=== PATIENT | female | born 1980 | race Caucasian/White ===

== ENCOUNTER 2023-04-25 21:43 | Emergency (ER) | payer MEDICARE, SELFPAY ==
--- NOTE | ~2023-04-25 | CT_ITS ---
EXAMINATION: CT abdomen pelvis w con INDICATION: Lower abdominal pain TECHNIQUE: Computed tomographic images of the abdomen and pelvis were obtained after the administrati on of 100 cc of Omnipaque 350 intravenous contrast. The dose-length product (DLP) was 1200.83 mGy-cm. Automated exposure control and iterative reconstruction technique were employed. COMPARISON: 04/29/2015 FINDINGS: The lung bases are clear. The heart size is normal. Changes of cholecystectomy are noted. T he liver, spleen, pancreas, and adrenal glands are normal. The kidneys are unremarkable. No pathologi clair enlarged abdominal or pelvic lymph nodes are identified. There is no free intraperitoneal gas. There are changes of partial colectomy. A large volume of colonic stool is present. There is moderate lumbar spondylosis at L5-S1. IMPRESSION: 1. Constipation. Reviewed, dictated and finalized at location F. IMPRESSION: 1. Constipation.
[2023-04-25 21:43] VITALS: PULSE 72
[2023-04-25 21:53] VITALS: BP 102/58; PULSE 77; RESP 14; TEMP 36.7; O2SAT 97
[2023-04-25 22:14] LABS: Basophils Absolute Auto 0.03 K/mm3 (0.00-0.10); Basophils Percent Auto 0.5 % (0.0-1.0); Eosinophils Percent Auto 1.7 % (1.0-6.0); Hematocrit 38.9 % (35.0-49.0); Hemoglobin 12.5 g/dL (12.0-15.0); Immature Granulocyte Absolute 0.02 K/mm3 (0.00-0.00); Immature Granulocyte Percent A 0.3 % (0.0-0.0); Lymphocytes Absolute Auto 2.28 K/mm3 (1.10-4.50); Lymphocytes Percent Auto 39.6 % (18.0-42.0); Mean Corpuscular HGB Conc 32.1 g/dL (32.0-36.0); Mean Corpuscular Volume 96.5 fL (78.0-102.0); Mean Platelet Volume 11.6 fl (9.2-11.8); Monocytes Absolute Auto 0.44 K/mm3 (0.10-0.90); Monocytes Percent Auto 7.6 % (2.0-11.0); Neutrophils Absolute Auto 2.9 K/mm3 (1.7-7.2); Neutrophils Percent Auto 50.3 % (50.0-70.0); Platelet Count Result 256 K/mm3 (150-420); Red Blood Count 4.03 M/mm3 (4.20-5.40); Red Cell Distribution Width 16.7 % (11.6-14.4); White Blood Count 5.8 K/mm3 (4.8-10.8)
--- NOTE | 2023-04-25 22:19 | ED.NAVMDI ---
HPI - Nausea/Vomiting/Diarrhea General Chief complaint: Nausea/Vomiting/Diarrhea Stated complaint: abdominal/lower back pain Time Seen by Provider: 04/25/23 21:47 Related Data Allergies Allergy/AdvReac Type Severity Reaction Status Date / Time Sulfa (Sulfonamide Allergy Swelling Verified 04/25/23 22:05 Antibiotics) [facility] Past Medical History Medical History HTN (hypertension) Surgical History Surgical History H/O resection of large bowel History of cholecystectomy Course Vital Signs Vital signs: Vital Signs Pulse Rate 72 04/25/23 21:43 Temperature 36.6 C 04/25/23 23:48 Pulse Rate 70 04/25/23 23:48 Respiratory Rate 18 04/25/23 23:48 Blood Pressure 107/67 04/25/23 23:48 Pulse Oximetry 97 04/25/23 23:48 Oxygen Delivery Room Air 04/25/23 23:48 MDM - Nausea/Vomiting/Diarrhea Lab Data 04/25/23 22:10 04/25/23 22:10 Labs: Lab Results 04/25/23 04/25/23 Range/Units 22:10 23:08 WBC 5.8 (4.8-10.8) K/mm3 RBC 4.03 L (4.20-5.40) M/mm3 Hgb 12.5 (12.0-15.0) g/dL Hct 38.9 (35.0-49.0) % MCV 96.5 (78.0-102.0) fL MCH 31.0 (27.0-31.0) pg MCHC 32.1 (32.0-36.0) g/dL RDW 16.7 H (11.6-14.4) % Plt Count 256 (150-420) K/mm3 MPV 11.6 (9.2-11.8) fl Immature Gran % (Auto) 0.3 H (0.0-0.0) % Neut % (Auto) 50.3 (50.0-70.0) % Lymph % (Auto) 39.6 (18.0-42.0) % [place] % (Auto) 7.6 (2.0-11.0) % Eos % (Auto) 1.7 (1.0-6.0) % Baso % (Auto) 0.5 (0.0-1.0) % Lymph # (Auto) 2.28 (1.10-4.50) K/mm3 [place] # (Auto) 0.44 (0.10-0.90) K/mm3 Eos # (Auto) 0.10 (0.02-0.50) K/mm3 Baso # (Auto) 0.03 (0.00-0.10) K/mm3 Abs Immat Gran (auto) 0.02 H (0.00-0.00) K/mm3 Absolute Neuts (auto) 2.9 (1.7-7.2) K/mm3 Absolute Nucleated RBC 0.00 (0.00-0.00) K/mm3 Nucleated RBC % 0.0 (0-0.0) % PT 11.4 (9.50-12.10) Seconds INR 1.0 APTT 34.7 H (23.90-30.70) SEC Sodium 142 (136-145) mmol/L Potassium 3.6 (3.5-5.1) mmol/L Chloride 107 (98-108) mmol/L Carbon Dioxide 21 (21-32) mmol/L Anion Gap 14 (8-16) mmol/L BUN 10 (7-18) mg/dL Creatinine 1.01 (0.55-1.02) mg/dL Estim Creat Clear Calc 87 ml/min Estimated GFR 60 (59 - ) Glucose 92 (70-99) mg/dL Calculated Osmolality 293 (285-295) mOsm/kg Lactic Acid 1.6 (0.4-2.0) mmol/L Calcium 9.6 (8.5-10.1) mg/dL Total Bilirubin 0.1 (0.00-1.00) mg/dL AST 15 (15-37) U/L ALT 41 (14-59) U/L Alkaline Phosphatase 85 (46-116) U/L C-Reactive Protein < 0.1 (0.0-0.9) mg/dL Total Protein 6.9 (6.4-8.2) g/dL Albumin 3.6 (3.4-5.0) g/dL Lipase 17 (16-77) U/L Urine Color Yellow (Yellow) Urine Appearance Clear (Clear) Urine pH 6.5 (5.0-8.0) Ur Specific [place] >= 1.030 H (1.010-1.020) Urine Protein Trace H (Negative) Urine Glucose (UA) Negative (Negative) Urine Ketones Trace H (Negative) Ur Blood (Man) Negative (Negative) Urine Nitrate Negative (Negative) Urine Bilirubin 1+ H (Negative) Urine Urobilinogen 0.2 (0.2-1.0) mg/dL Leukocyte Esterase Rfl Trace H (Negative) ZEB/UL Urine RBC 0-2 (0-2) /hpf Urine WBC 7-9 H (0-3) /hpf Ur Squamous Epith Cells Many H (Few) /hpf Calcium Oxalate Crystal Present H (None) /hpf Urine Bacteria 2+ H (None) /hpf Urine Mucus Moderate H /lpf Urine Test Negative Discharge Plan Discharge Clinical Impression: Urinary tract infection, Constipation Patient Disposition: Home, Self-Care Condition: Stable Instructions: Antibiotic Form, Constipation (ED), Urinary Tract Infection in Women (ED) Additional Instructions: advised to take medicine as prescribed follow-up with primary care physician for further evaluation and treatment. Prescriptions: Ne
--- NOTE | 2023-04-25 22:19 | ED.NAVMDI ---
HPI - Nausea/Vomiting/Diarrhea General Chief complaint: Nausea/Vomiting/Diarrhea Stated complaint: abdominal/lower back pain Time Seen by Provider: 04/25/23 21:47 Source: patient Mode of arrival: ambulatory Limitations: no limitations History of Present Illness HPI Narrative: this is a 42-year-old female that presents with abdominal pain, has been off and on for the last 3 to 4 weeks has seen her primary care physician and apparently no studies have been done to this point, patient having nausea vomiting and decreased appetite with abdominal pain that she rates about an 8 of 10, otherwise no fever chills no diarrhea constipation no flank pain. Patient has a history of abdominal surgery with some partial resection of her large and test in and a cholecystectomy. MD elicited complaint: nausea, vomiting and abdominal pain Pertinent past history: anorexia Onset (ago): week(s) Description of vomiting: food contents Description of diarrhea: semi-solid Associated nausea: Yes Associated abdominal pain: Yes Location of pain: epigastric and periumbilical Severity: moderate Pain scale (0-10): 8 Quality: aching Exacerbating factors: none Relieving factors: none Related Data Allergies Allergy/AdvReac Type Severity Reaction Status Date / Time Sulfa (Sulfonamide Allergy Swelling Verified 04/25/23 22:05 Antibiotics) Review of Systems Review of Systems: All systems reviewed & are unremarkable except as noted in HPI and below PMFSH Past Medical History Medical History HTN (hypertension) Surgical History Surgical History H/O resection of large bowel History of cholecystectomy Exam Const: General: healthy appearing, no acute distress and alert Nutritional Appearance: well nourished and obese Orientation/consciousness: patient oriented x3 Limitations: no limitations HENMT: Head: normal to inspection Eyes: Conjunctivae: conjunctivae normal Pupils: Equal, round and reactive pupils present EOM: EOMs intact bilaterally Neck: Neck: normal visual inspection Chest: Chest palpation & inspection: normal inspection of the chest Resp: Effort & Inspection: normal respiratory effort Auscultation: clear to auscultation bilaterally Cardio: Rate: regular rate Rhythm: regular rhythm GI: GI Palp: Yes Soft to palpation and Yes Tenderness to palpation present (GI) Auscultation: normal bowel sounds : General: Yes Bladder palpation abnormal Urinary Catheter: Urinary Catheter: patent and draining Back/Spine/Pelvis: Back: no CVA tenderness Skin: General skin exam: normal color Rashes: no rashes Wounds: no wounds Neuro: General: patient oriented x3 Cranial nerves: Yes Nystagmus not present Extrem: General: normal to inspection and no clubbing, cyanosis or edema Psych: Mental Status: mental status grossly normal Affect: normal affect Course Course Emergency Course: patient received pain medication and medication for anxiety, labs reviewed, UA performed shows urinary tract infection CT scan performed shows that patient has constipation. Vital Signs Vital signs: Vital Signs Temperature 36.7 C 04/25/23 21:53 Pulse Rate 77 04/25/23 21:53 Respiratory Rate 14 04/25/23 21:53 Blood Pressure 102/58 L 04/25/23 21:53 Pulse Oximetry 97 04/25/23 21:53 Oxygen Delivery Room Air 04/25/23 21:53 Temperature 36.7 C 04/25/23 21:53 Pulse Rate 77 04/25/23 21:53 Respiratory Rate 14 04/25/23 21:53 Blood Pressure 102/58 L 04/25/23 21:53 Pulse Oximetry 97 04/25/23 21:53 Oxygen Delivery Room Air 04/25/23 21:53 MDM - Nausea/Vomiting/Diarrhea Lab Data 04/25/23 22:10 04/25/23 22:10 Labs: Lab Results 04/25/23 Range/Units 22:10 WBC 5.8 (4.8-10.8) K/mm3 RBC 4.03 L (4.20-5.40) M/mm3 Hgb 12.5 (12.0-15.0) g/dL Hct 38.9 (35.0-49.0) % MCV
[2023-04-25 22:28] LABS: Partial Thromboplastin Time 34.7 SEC (23.90-30.70); Prothrombin Time 11.4 Seconds (9.50-12.10)
[2023-04-25] MEDS: ONDANSETRON INJ 4 MG/2 ML VIAL IV PUSH (22:31)
[2023-04-25] MEDS: KETOROLAC 30 MG/ML VIAL (*BKC) IV PUSH (22:31)
[2023-04-25] MEDS: SODIUM CHLORIDE 0.9% IV 1,000 ML 999 ML IV CONT (22:31)
[2023-04-25 22:35] LABS: Lactic Acid Reflex 1.6 mmol/L (0.4-2.0)
[2023-04-25] MEDS: ALPRAZolam (*CRX) 0.5 MG TABLET PO (22:40)
[2023-04-25 22:41] LABS: Alanine Aminotransferase 41 U/L (14-59); Albumin Level 3.6 g/dL (3.4-5.0); Alkaline Phosphatase 85 U/L (46-116); Anion Gap 14 mmol/L (8-16); Aspartate Amino Transferase 15 U/L (15-37); Bilirubin,Total 0.1 mg/dL (0.00-1.00); Blood Urea Nitrogen 10 mg/dL (7-18); Calcium 9.6 mg/dL (8.5-10.1); Carbon Dioxide 21 mmol/L (21-32); Chloride 107 mmol/L (98-108); Estimated CRCL calculation 87 ml/min; Estimated Glomerular Filt Rate 60; Glucose 92 mg/dL (70-99); Lipase 17 U/L (16-77); Osmolality Calculated 293 mOsm/kg (285-295); Potassium 3.6 mmol/L (3.5-5.1); Sodium 142 mmol/L (136-145); Total Protein 6.9 g/dL (6.4-8.2)
[2023-04-25 22:45] LABS: CRP < 0.1 mg/dL (0.0-0.9)
[2023-04-25 23:08] LABS: Appearance Urine Clear (Clear); Bilirubin Urine 1+ (Negative); Blood Urine Negative (Negative); Color Urine Yellow (Yellow); Glucose Urine UA Negative (Negative); Ketones Urine Trace (Negative); Leukocyte Esterase Ur Trace LEU/UL (Negative); Nitrate Urine Negative (Negative); Protein Urine Trace (Negative); Specific Grav Ur >= 1.030 (1.010-1.020); Urobilinogen Urine 0.2 mg/dL (0.2-1.0); pH Urine 6.5 (5.0-8.0)
[2023-04-25 23:10] LABS: Pregnancy On Board Control Positive; Urine Pregnancy Test Negative
[2023-04-25] MEDS: NITROFURANTOIN MONOHYD MACROCR 100 MG CAP PO (23:10)
[2023-04-25 23:16] VITALS: BP 106/60; PULSE 66; RESP 16; O2SAT 96
[2023-04-25 23:16] LABS: Add Urine Microscopic? YES; RBC Urine 0-2 /hpf (0-2)
[2023-04-25 23:17] LABS: Bacteria Urine 2+ /hpf; Calcium Oxalate Crystals Urine Present /hpf; Mucus Urine Moderate /lpf; Squamous Epithelial Cell Urine Many /hpf (Few)
[2023-04-25 23:48] VITALS: BP 107/67; PULSE 70; RESP 18; TEMP 36.6; O2SAT 97
--- NOTE | 2023-04-29 12:50 | PC.NURSE ---
FINAL URINE CULTURE REPORT: MIXED GENITAL VALERIE ISOLATE. PATIENT DISCHARGED ON MACROBID. NO FURTHER TREATMENT OR ACTION NEEDED PER ERP DR. CLEVELAND
== END 2023-04-26 00:02 | disposition home or self-care (01) ==
PROVIDERS: Emergency Provider Emergency Medicine
DX: N30.00 Acute cystitis without hematuria (principal); K59.00 Constipation, unspecified; R11.2 Nausea with vomiting, unspecified; I10 Essential (primary) hypertension
CPT/HCPCS: 36415; 74177; 80053; 81001; 81025; 83605; 83690; 85025; 85610; 85730; 86140; 87086; 87088; 96361; 96374; 96375; 99284; A9270; J1885; J2405; J7030; Q9967

== ENCOUNTER 2023-05-10 18:37 | Emergency (ER) | payer MEDICARE, SELFPAY ==
--- NOTE | ~2023-05-10 | CT_ITS ---
EXAMINATION: CT abdomen pelvis wo con DATE: 05/10/2023 19:05 INDICATION: Nausea. Abdomen pain. TECHNIQUE: Computed tomography (CT) of the abdomen and pelvis was performed without intravenous contr ast. The dose-length product was 1227.10 mGy-cm. Automated exposure control and iterative reconstruct ion technique were employed. COMPARISON: CT dated 04/25/2023. FINDINGS: Lung bases are unremarkable. Heart size normal. No significant pleural or pericardial effus ion. Status post cholecystectomy. The liver, spleen, pancreas, adrenal glands and kidneys are unremar kable. Nonobstructive bowel gas pattern. No evidence for diverticulitis. There is a colonic anastomos is in the left upper abdomen. No significant vascular abnormality. No lymphadenopathy. No acute osseo us abnormality. There is scoliosis. IMPRESSION: 1. No acute abdominal abnormality. Reviewed, dictated and finalized at location A.
--- NOTE | ~2023-05-10 | XR_ITS ---
EXAMINATION: XR chest 2V 05/10/2023 19:09 INDICATION: Mid-left sided chest pain PROCEDURE: 2 view chest COMPARISON: No prior studies for comparison. FINDINGS: The lungs are clear. The cardiomediastinal silhouette is within normal limits. There are no pleural effusions. There is no pneumothorax suspected. IMPRESSION: 1: NO ACUTE CARDIOPULMONARY DISEASE. Reviewed, dictated and finalized at location A.
--- NOTE | 2023-05-10 18:43 | ECG_ITS ---
Measurements Intervals [place] Rate: 85 P: 61 CT: 161 QRS: 31 QRSD: 73 T: 45 QT: 345 QTc: 412 Interpretive Statements SINUS RHYTHM POSSIBLE LEFT ATRIAL ENLARGEMENT LOW QRS VOLTAGE IN PRECORDIAL LEADS NONSPECIFIC ST & T-WAVE ABNORMALITY- DIFFUSE LEADS BASELINE ARTIFACT- I, II, III, AVR, AVL, AVF, V1-V2 BORDERLINE ECG NO PREVIOUS ECG AVAILABLE FOR COMPARISON Electronically Signed On 05-10-2023 19:02:12 CDT by Semaj Montero D.O.
[2023-05-10 18:57] VITALS: BP 98/55; PULSE 90; RESP 20; TEMP 36.2; O2SAT 98
--- NOTE | 2023-05-10 19:00 | ED.ABDPAIN ---
HPI - Abdominal Pain General Chief Complaint: Abdominal Pain Stated Complaint: ABD PAIN/ CHEST PAIN Time Seen by Provider: 05/10/23 18:46 Source: patient and family Mode of arrival: ambulatory Limitations: no limitations History of Present Illness HPI narrative: patient is 42-year-old female with chest pain and abdominal pain since yesterday. Pain in the chest is sharp and radiating to her back. Her abdominal pain is upper abdomen and lower abdomen. She has associated nausea and vomiting. 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 MD elicited complaint: abdominal pain Pertinent past history: other (anxiety) Onset (ago): day(s) (2) Pain Consistency: constant Location: diffuse, epigastric and suprapubic Severity: severe Pain scale (0-10): 8 Quality: cramping and sharp Radiation: none Migration to: no migration Exacerbating factors: nothing Relieving factors: nothing Context: confirms history of similar episodes (corie, prior sbo) Associated symptoms: nausea, vomiting and chills Related Data Home Medications Medication Instructions Recorded Confirmed apixaban 5 mg tablet (Eliquis) 5 mg PO BID 05/10/23 05/10/23 famotidine 20 mg tablet 20 mg PO HS 05/10/23 05/10/23 fluoxetine 20 mg tablet 60 mg PO DAILY 05/10/23 05/10/23 mirtazapine 15 mg tablet 15 mg PO HS 05/10/23 05/10/23 montelukast 10 mg tablet 10 mg PO HS 05/10/23 05/10/23 pantoprazole 40 mg tablet,delayed 40 mg PO DAILY 05/10/23 05/10/23 release quetiapine 100 mg tablet 100 mg PO HS 05/10/23 05/10/23 quetiapine 300 mg tablet 300 mg PO HS 05/10/23 05/10/23 quetiapine 50 mg tablet 50 mg PO DAILY 05/10/23 05/10/23 Allergies Allergy/AdvReac Type Severity Reaction Status Date / Time Sulfa (Sulfonamide Allergy Swelling Verified 04/25/23 22:05 Antibiotics) tramadol Allergy Itching Verified 05/10/23 19:10 Review of Systems Review of Systems: All systems reviewed & are unremarkable except as noted in HPI and below Constitutional: Constitutional: Reports no additional constitutional complaints Eyes: Eyes: Reports no additional eye complaints ENT: Reports system reviewed and no additional complaints, except as documented Cardiovascular: Cardiovascular: Reports no additional cardiovascular complaints Respiratory: Respiratory: Reports no additional respiratory complaints Gastrointestinal: Gastrointestinal: Reports no additional gastrointestinal complaints Genitourinary: Genitourinary: Reports no additional female genitourinary complaints Musculoskeletal: Musculoskeletal: Reports no additional musculoskeletal complaints Integumentary/Breasts: Skin/Breast: Reports system reviewed and no additional complaints, except as docu Neurologic: Reports system reviewed and no additional complaints, except as documented Psychiatric: Psychiatric: Reports no additional psychiatric complaints Endocrine: Endocrine: Reports no additional endocrine complaints Hematologic/Lymphatic: Hematologic/Lymphatic: Reports no additional hematologic/lymphatic complaints Allergic/Immunologic: Allergic/Immunologic: Reports no additional allergic/immunologic complaints PMFSH Past Medical History Medical History HTN (hypertension) Surgical History Surgical History H/O resection of large bowel History of cholecystectomy Exam Const: General: healthy appearing Nutritional Appearance: well nourished Orientation/consciousness: patient oriented x3 HENMT: Head: normal to inspection Ears: external ears normal Face/Nose/Sinus: Normal external nose present Eyes: Conjunctivae: conjunctivae normal Pupils: Equal, round and reactive pupils present EOM: EOMs intact bilaterally Neck: Neck: normal visual inspection Chest: Chest palpation & inspection: normal inspection of the chest Resp: Effort & Inspection: normal respiratory effort Auscultation: clear to a
--- NOTE | 2023-05-10 19:16 | PC.NURSE ---
On 05/10/23, the student, [kunal sabillon ], provided care and completed [facility] documentation on this patient. I have reviewed the student's documentation and agree with the findings.
[2023-05-10 19:18] LABS: Basophils Absolute Auto 0.05 K/mm3 (0.00-0.10); Basophils Percent Auto 0.7 % (0.0-1.0); Eosinophils Absolute Auto 0.11 K/mm3 (0.02-0.50); Eosinophils Percent Auto 1.5 % (1.0-6.0); Hematocrit 39.2 % (35.0-49.0); Hemoglobin 12.8 g/dL (12.0-15.0); Immature Granulocyte Absolute 0.01 K/mm3 (0.00-0.00); Immature Granulocyte Percent A 0.1 % (0.0-0.0); Lymphocytes Percent Auto 34.6 % (18.0-42.0); Mean Corpuscular HGB Conc 32.7 g/dL (32.0-36.0); Mean Corpuscular Hemoglobin 31.8 pg (27.0-31.0); Mean Corpuscular Volume 97.3 fL (78.0-102.0); Mean Platelet Volume 11.6 fl (9.2-11.8); Monocytes Absolute Auto 0.57 K/mm3 (0.10-0.90); Monocytes Percent Auto 7.6 % (2.0-11.0); Neutrophils Absolute Auto 4.2 K/mm3 (1.7-7.2); Neutrophils Percent Auto 55.5 % (50.0-70.0); Platelet Count Result 290 K/mm3 (150-420); Red Blood Count 4.03 M/mm3 (4.20-5.40); Red Cell Distribution Width 15.7 % (11.6-14.4); White Blood Count 7.5 K/mm3 (4.8-10.8)
[2023-05-10 19:35] LABS: D Dimer 0.19 mg/L (0.19-0.50); INR 1.1; Partial Thromboplastin Time 32.9 SEC (23.90-30.70); Prothrombin Time 11.5 Seconds (9.50-12.10)
[2023-05-10 19:39] LABS: Alanine Aminotransferase 33 U/L (14-59); Albumin Level 3.8 g/dL (3.4-5.0); Alkaline Phosphatase 83 U/L (46-116); Anion Gap 15 mmol/L (8-16); Aspartate Amino Transferase 21 U/L (15-37); Bilirubin,Total 0.1 mg/dL (0.00-1.00); Blood Urea Nitrogen 10 mg/dL (7-18); Calcium 9.5 mg/dL (8.5-10.1); Carbon Dioxide 21 mmol/L (21-32); Chloride 104 mmol/L (98-108); Estimated CRCL calculation 75 ml/min; Estimated Glomerular Filt Rate 59; Glucose 82 mg/dL (70-99); Lipase 22 U/L (16-77); Osmolality Calculated 288 mOsm/kg (285-295); Potassium 3.7 mmol/L (3.5-5.1); Sodium 140 mmol/L (136-145); Total Protein 7.2 g/dL (6.4-8.2)
[2023-05-10 19:42] LABS: Troponin I < 4.0 ng/L (0.00-60.4)
[2023-05-10] MEDS: ONDANSETRON HCL ODT 4 MG TABLET PO (20:06)
[2023-05-10 20:14] LABS: Appearance Urine Clear (Clear); Bilirubin Urine Negative (Negative); Blood Urine Negative (Negative); Color Urine Light Yellow (Yellow); Glucose Urine UA Negative (Negative); Ketones Urine Negative (Negative); Leukocyte Esterase Ur Trace LEU/UL (Negative); Nitrate Urine Negative (Negative); Protein Urine Negative (Negative); Specific Grav Ur 1.015 (1.010-1.020); Urobilinogen Urine 0.2 mg/dL (0.2-1.0); pH Urine 6.5 (5.0-8.0)
[2023-05-10 20:16] LABS: SPREG INTERNAL CONTROL Positive; Serum Qual hCG Negative
[2023-05-10 20:19] LABS: Add Urine Microscopic? YES; Bacteria Urine Trace /hpf; Mucus Urine Few /lpf; RBC Urine 0-2 /hpf (0-2); Squamous Epithelial Cell Urine Rare /hpf (Few)
[2023-05-10 20:21] LABS: Amphetamine Screen Urine Negative (Negative); Barbiturate Screen Urine Negative (Negative); Benzodiazepines Screen Urine Negative (Negative); Cannabinoid Screen Urine Positive (Negative); Cocaine Screen Urine Negative (Negative); Methadone Screen Urine Negative (Negative); Opiate Screen Urine Negative (Negative); Phencyclidine Screen Urine Negative (Negative)
[2023-05-10] MEDS: CEPHALEXIN 500 MG CAPSULE PO (20:41)
[2023-05-10] MEDS: ALPRAZolam (*CRX) 0.5 MG TABLET PO (20:43)
[2023-05-10 20:52] VITALS: BP 100/75; PULSE 81; RESP 16; TEMP 36.5; O2SAT 96
== END 2023-05-10 20:54 | disposition home or self-care (01) ==
PROVIDERS: Emergency Provider Emergency Medicine
DX: R07.89 Other chest pain (principal); R10.84 Generalized abdominal pain; N30.00 Acute cystitis without hematuria; I10 Essential (primary) hypertension; F41.9 Anxiety disorder, unspecified; Z86.718 Personal history of other venous thrombosis and embolism; Z79.01 Long term (current) use of anticoagulants; Z79.899 Other long term (current) drug therapy
CPT/HCPCS: 36415; 71046; 74176; 80053; 80307; 81001; 83690; 84484; 84703; 85025; 85380; 85610; 85730; 93005; 99284; A9270

== ENCOUNTER 2023-05-22 19:58 | Emergency (ER) | payer MEDICARE, SELFPAY ==
[2023-05-22 20:03] VITALS: BP 110/66; PULSE 89; RESP 18; TEMP 36.7; O2SAT 98
--- NOTE | 2023-05-22 20:28 | ED.ANXIETY ---
HPI - Anxiety General Chief Complaint: Anxiety Stated Complaint: medication refill, anxiety, constipation Time Seen by Provider: 05/22/23 20:27 Source: patient Mode of arrival: ambulatory Limitations: no limitations History of Present Illness HPI narrative: 42-year-old female with a history of anxiety on Ativan, IBS, history of blood clots on Eliquis, status post Partial colectomy presents to the ER -- severe anxiety since she quit taking Ativan 5 days ago. The patient is unable to relax and sleep. -- Anterior chest pain. No nausea /vomiting. No radiation of the pain. Pain is not related to exercise. -- Diffuse abdominal pain. No nausea /vomiting. Constipated. MD complaint: anxiety Onset (ago): day(s) Symptoms: chest pain Severity: moderate Place: home History of similar episodes: Yes Provoking factors: emotional stress Relieving factors: nothing Exacerbating factors: nothing Associated symptoms: denies other symptoms and chest pain Related Data Home Medications Medication Instructions Recorded Confirmed apixaban 5 mg tablet (Eliquis) 5 mg PO BID 05/10/23 05/10/23 famotidine 20 mg tablet 20 mg PO HS 05/10/23 05/10/23 fluoxetine 20 mg tablet 60 mg PO DAILY 05/10/23 05/10/23 mirtazapine 15 mg tablet 15 mg PO HS 05/10/23 05/10/23 montelukast 10 mg tablet 10 mg PO HS 05/10/23 05/10/23 pantoprazole 40 mg tablet,delayed 40 mg PO DAILY 05/10/23 05/10/23 release quetiapine 100 mg tablet 100 mg PO HS 05/10/23 05/10/23 quetiapine 300 mg tablet 300 mg PO HS 05/10/23 05/10/23 quetiapine 50 mg tablet 50 mg PO DAILY 05/10/23 05/10/23 Allergies Allergy/AdvReac Type Severity Reaction Status Date / Time Sulfa (Sulfonamide Allergy Swelling Verified 04/25/23 22:05 Antibiotics) tramadol Allergy Itching Verified 05/10/23 19:10 Review of Systems Review of Systems: All systems reviewed & are unremarkable except as noted in HPI and below Constitutional: Constitutional: Reports as per HPI and Reports no additional constitutional complaints Eyes: Eyes: Reports as per HPI and Reports no additional eye complaints ENT: Reports system reviewed and no additional complaints, except as documented and Reports as per HPI Cardiovascular: Cardiovascular: Reports as per HPI, Reports no additional cardiovascular complaints and Reports chest pain Respiratory: Respiratory: Reports as per HPI and Reports no additional respiratory complaints Gastrointestinal: Gastrointestinal: Reports as per HPI, Reports no additional gastrointestinal complaints and Reports abdominal pain Genitourinary: Genitourinary: Reports no additional female genitourinary complaints Musculoskeletal: Musculoskeletal: Reports no additional musculoskeletal complaints Integumentary/Breasts: Skin/Breast: Reports system reviewed and no additional complaints, except as docu and Reports as per HPI Neurologic: Reports system reviewed and no additional complaints, except as documented and Reports as per HPI Psychiatric: Psychiatric: Reports no additional psychiatric complaints, Reports as per HPI and Reports anxiety Endocrine: Endocrine: Reports no additional endocrine complaints and Reports as per HPI Hematologic/Lymphatic: Hematologic/Lymphatic: Reports no additional hematologic/lymphatic complaints and Reports as per HPI Allergic/Immunologic: Allergic/Immunologic: Reports no additional allergic/immunologic complaints and Reports as per HPI PMFSH Past Medical History Medical History (Updated 05/22/23 @ 21:41 by Mateus Howard MD) HTN (hypertension) IBS (irritable bowel syndrome) Surgical History Surgical History H/O resection of large bowel History of cholecystectomy Social History Social History Substance use type: marijuana Exam Const: General: no acute distress Nutritional Appearance: obese Orientation/consciousness: patient hilda
--- NOTE | 2023-05-22 20:51 | ECG_ITS ---
Measurements Intervals [place] Rate: 69 P: 52 FL: 171 QRS: 37 QRSD: 79 T: 51 QT: 387 QTc: 415 Interpretive Statements SINUS RHYTHM LOW QRS VOLTAGE IN PRECORDIAL LEADS BORDERLINE ST-T WAVE ABNORMALITY- ANT/INF LEADS BORDERLINE ECG COMPARED TO ECG 05/10/2023 18:50:12 NO SIGNIFICANT CHANGES Electronically Signed On 05-23-2023 7:08:33 [employer] by Semaj Montero D.O.
[2023-05-22] MEDS: LORazepam (*CRX) 1 MG TABLET PO (21:09)
[2023-05-22 21:10] LABS: Basophils Absolute Auto 0.03 K/mm3 (0.00-0.10); Basophils Percent Auto 0.5 % (0.0-1.0); Eosinophils Percent Auto 1.7 % (1.0-6.0); Hematocrit 35.9 % (35.0-49.0); Hemoglobin 11.6 g/dL (12.0-15.0); Immature Granulocyte Absolute 0.01 K/mm3 (0.00-0.00); Immature Granulocyte Percent A 0.2 % (0.0-0.0); Lymphocytes Absolute Auto 2.29 K/mm3 (1.10-4.50); Lymphocytes Percent Auto 39.3 % (18.0-42.0); Mean Corpuscular HGB Conc 32.3 g/dL (32.0-36.0); Mean Corpuscular Hemoglobin 32.1 pg (27.0-31.0); Mean Corpuscular Volume 99.4 fL (78.0-102.0); Mean Platelet Volume 11.6 fl (9.2-11.8); Monocytes Absolute Auto 0.47 K/mm3 (0.10-0.90); Monocytes Percent Auto 8.1 % (2.0-11.0); Neutrophils Absolute Auto 2.9 K/mm3 (1.7-7.2); Neutrophils Percent Auto 50.2 % (50.0-70.0); Platelet Count Result 248 K/mm3 (150-420); Red Blood Count 3.61 M/mm3 (4.20-5.40); Red Cell Distribution Width 15.8 % (11.6-14.4); White Blood Count 5.8 K/mm3 (4.8-10.8)
[2023-05-22 21:21] VITALS: BP 105/78; PULSE 71; RESP 18
[2023-05-22 21:28] LABS: Lactic Acid Reflex 0.7 mmol/L (0.4-2.0)
[2023-05-22 21:39] LABS: Alanine Aminotransferase 22 U/L (14-59); Albumin Level 3.5 g/dL (3.4-5.0); Alkaline Phosphatase 87 U/L (46-116); Anion Gap 10 mmol/L (8-16); Aspartate Amino Transferase 11 U/L (15-37); Bilirubin,Total 0.2 mg/dL (0.00-1.00); Blood Urea Nitrogen 9 mg/dL (7-18); Calcium 9.1 mg/dL (8.5-10.1); Carbon Dioxide 25 mmol/L (21-32); Chloride 109 mmol/L (98-108); Estimated CRCL calculation 70 ml/min; Estimated Glomerular Filt Rate 55; Glucose 84 mg/dL (70-99); Osmolality Calculated 295 mOsm/kg (285-295); Potassium 4.1 mmol/L (3.5-5.1); Sodium 144 mmol/L (136-145); Total Protein 6.7 g/dL (6.4-8.2); Troponin I 4.5 ng/L (0.00-60.4)
== END 2023-05-22 21:44 | disposition left against medical advice (07) ==
PROVIDERS: Emergency Provider Internal Medicine Critical Care Medicine
DX: F41.9 Anxiety disorder, unspecified (principal); R07.9 Chest pain, unspecified; R10.84 Generalized abdominal pain; I10 Essential (primary) hypertension; Z79.899 Other long term (current) drug therapy; Z79.01 Long term (current) use of anticoagulants
CPT/HCPCS: 36415; 80053; 83605; 84484; 85025; 93005; 99284; A9270